=== PATIENT | female | born 1945 | race Hispanic/Latino ===

== ENCOUNTER → 2017-11-08 | Day surgery (SDC) | payer MEDICARE ==
[~2017-11-08] MED LIST: AMLODIPINE BESYL5 MG PO; BALANCED SALT SOLN (OPTH) 15 ML BTL IO ONE; FENTANYL CITRATE/PF 100MCG/2 ML INJ ONE; GELATIN SPONGE 12-7MM ONE; LIDOCAINE 2% /EPINEPHRINE 20 ML SDV INJ ONE; LIDOCAINE HCL 2% LOCAL INJ 5 ML SDV VIAL INJ ONE; METOPROLOL SUCC50 MG PO; MIDAZOLAM HCL 2 MG/2 ML VIAL ONE; NEOMYCIN/POLYMYXIN/DEX (OPTH) 3.5 GM TUBE ONE; PROPOFOL IV EMULSION 10 MG/ML 20 ML VIAL ONE
== END | disposition home or self-care (01) ==
LOC: OR 13:56
PROVIDERS: ATTEND Ophthalmology
DX: H02.834 Dermatochalasis of left upper eyelid (principal); H02.831 Dermatochalasis of right upper eyelid; R00.1 Bradycardia, unspecified; M06.9 Rheumatoid arthritis, unspecified; M19.90 Unspecified osteoarthritis, unspecified site; R09.81 Nasal congestion; I10 Essential (primary) hypertension; F41.9 Anxiety disorder, unspecified; Z01.810 Encounter for preprocedural cardiovascular examination
CPT/HCPCS: 15823; 93005; J2001 ×2; J2250

== ENCOUNTER → 2019-01-23 | Outpatient (CLI) | payer MEDICARE ==
[~2019-01-23] MED LIST changes: -BALANCED SALT SOLN (OPTH) 15 ML BTL IO ONE; -FENTANYL CITRATE/PF 100MCG/2 ML INJ ONE; -GELATIN SPONGE 12-7MM ONE; -LIDOCAINE 2% /EPINEPHRINE 20 ML SDV INJ ONE; -LIDOCAINE HCL 2% LOCAL INJ 5 ML SDV VIAL INJ ONE; -MIDAZOLAM HCL 2 MG/2 ML VIAL ONE; -NEOMYCIN/POLYMYXIN/DEX (OPTH) 3.5 GM TUBE ONE; -PROPOFOL IV EMULSION 10 MG/ML 20 ML VIAL ONE
--- NOTE | 2019-01-23 12:22 | Diagnostic Imaging Report ---
CT of the abdomen and pelvis, without contrast, 01/23/2019. History: Left lower quadrant pain. Comparison: None available. Technique: Multidetector CT scanning of the abdomen and pelvis was performed from the level of the lung bases to the inferior pubic rami without intravenous but with oral administration of contrast. Coronal and sagittal multiplanar reformations were obtained. RADIATION DOSE: Dose modulation, iterative reconstruction, and/or weight based adjustment of the mA/kV was utilized to reduce the radiation dose to as low as reasonably achievable. Discussion: Examination is limited without IV contrast. LUNG BASES: There is bibasilar atelectasis. ABDOMEN: A punctate calcification is present in the right kidney. There is no hydronephrosis. Extrarenal pelvis is noted on the right. The liver, gallbladder, biliary tree, spleen, pancreas, adrenal glands, and kidneys are otherwise unremarkable.. The abdominal aorta is within normal limits for size. A gastric lap band is present in the GE junction. The stomach and small bowel are unremarkable. The appendix is visualized and is normal. Scattered colonic diverticuli are present without evidence of adjacent inflammation. There is no evidence of adenopathy or free fluid. A fat-containing umbilical hernia is present. PELVIS: The bladder is unremarkable. The uterus and adnexa are absent. There is no evidence of free fluid or adenopathy. BONES AND SOFT TISSUES: Degenerative changes are present throughout the lumbar spine without evidence of lytic or sclerotic lesion. IMPRESSION: 1. Mild colonic diverticulosis without evidence of diverticulitis. 2. Tiny nonobstructing right renal calculus. 3. Gastric lap band in normal position. 4. Fat-containing umbilical hernia. Signed by: Allan Lorenz on 01/23/2019 12:19 PM
== END ==
LOC: CT 09:35
PROVIDERS: ATTEND Internal Medicine Gastroenterology
DX: R10.32 Left lower quadrant pain (principal); R51 Headache
CPT/HCPCS: 74176

== ENCOUNTER → 2019-01-24 | Outpatient (CLI) | payer MEDICARE ==
--- NOTE | 2019-01-24 10:56 | Diagnostic Imaging Report ---
EXAMINATION: MRI of the brain without contrast. HISTORY: Right-sided headaches COMPARISON: None. TECHNIQUE: Sagittal T2; axial DWI, T2, FLAIR, T1-IR, T2 gradient echo; coronal FLAIR. IMAGE QUALITY: Adequate. FINDINGS: Parenchyma: 1. Few scatter and periventricular hematocrit dropping hyperintense foci, most likely nonspecific chronic microvascular ischemic changes, within normal limits for patient's age. 2. No mass, hemorrhage, acute or chronic infarcts. Skull: Unremarkable. Vessels: Expected flow voids present in the major arteries and dural sinuses. Extra-axial spaces: No abnormal signal intensity or mass effect. Brain volume: Within normal limits for age. Ventricles: No hydrocephalus or displacement. Foramen magnum: Unremarkable. Sella: Unremarkable. Paranasal / mastoid sinuses: No significant inflammatory disease. IMPRESSION: Minimal chronic microvascular ischemic changes, otherwise no intracranial abnormalities. Signed by: Dr. Myriam Rivera M.D. on 01/24/2019 10:53 AM
== END ==
LOC: MRI 09:31
PROVIDERS: ATTEND Internal Medicine Gastroenterology
DX: R51 Headache (principal)
CPT/HCPCS: 70551

== ENCOUNTER → 2020-02-07 | Day surgery (SDC) | payer MEDICARE, OTHER ==
[2020-02-04 15:16] LABS: BASOPHILS % 0.3 % (0.0-1.0); EOSINOPHILS # (AUTO) 0.1 (0.0-0.4); HEMATOCRIT 41.2 % (34.2-44.1); HEMOGLOBIN 13.4 g/dL (12.0-16.0); LYMPHOCYTES # (AUTO) 2.3 (1.0-3.2); LYMPHOCYTES % 26.5 % (18.0-39.1); MEAN CORPUSCULAR HEMOGLOBIN 30.4 pg (28-32); MEAN CORPUSCULAR HGB CONC 32.5 g/dL (31-35); MEAN CORPUSCULAR VOLUME 93.4 fL (81-99); MONOCYTES # (AUTO) 0.5 (0.2-0.8); MONOCYTES % 6.1 % (4.4-11.3); NEUTROPHILS # (AUTO) 5.6 (2.1-6.9); NEUTROPHILS % 65.8 % (38.7-80.0); PLATELET COUNT 231 x10e3/uL (140-360); RED BLOOD COUNT 4.41 x10e6/uL (3.6-5.1); RED CELL DISTRIBUTION WIDTH 13.2 % (11.7-14.4)
[~2020-02-07] MED LIST changes: +KETAMINE HCL INJ 50 MG/ML 10 ML VIAL ONE; +LIDOCAINE HCL 2% LOCAL INJ 5 ML SDV VIAL INJ ONE; +LISINOPRIL5 MG PO; +MIDAZOLAM HCL 2 MG/2 ML VIAL ONE; +OMEPRAZOLE40 MG PO; +PANTOPRAZOLE 40 MG 10ML VIAL ONE; +PROPOFOL IV EMULSION 10 MG/ML 20 ML VIAL ONE; +RANITIDINE PO
[2020-02-07 13:00] VITALS: BP 129/67
--- NOTE | 2020-02-07 13:37 | Operative Report ---
DATE OF PROCEDURE: 02/07/2020 SURGEON: Rene Mensah MD PROCEDURE: EGD with biopsies. INDICATIONS FOR EGD: Upper abdominal pain and increase eructations. MEDICATIONS: The patient was done under MAC, please see anesthesiologist's note. PROCEDURE IN DETAIL: With the patient in the left lateral decubitus position, a flexible fiberoptic Olympus gastroscope was introduced into the esophagus under direct visualization without any difficulty. There was some patchy erythema noted in distal esophagus. The scope was then advanced with ease into the stomach. Mucosa overlying the antrum and the body revealed some patchy erythema and [id number] edema, and biopsies were obtained and sent to stain for H. pylori. Pylorus was of normal contour and shape, was intubated with ease and the scope was advanced all the way to the second portion of the duodenum. The scope was then withdrawn slowly, mucosa overlying the proximal second portion appeared to be within normal limits. Two ulcers were noted in the distal bulb, approximately 5 mm in size without active bleeding. The scope was then withdrawn back into the stomach and retroflexed, and the lap band appeared to be intact and in good positioning. The scope was then straightened out, it was subsequently withdrawn, and the patient tolerated the procedure well. IMPRESSION: 1. Distal esophagitis, mild. 2. Status post lap band, intact. 3. Gastritis, biopsied, biopsies sent to stain for Helicobacter pylori. 4. Duodenal ulcers, bulb, approximately 5 mm in size without active bleeding. PLAN: Follow up histology. Initiate Protonix 40 mg one p.o. q.a.m. before meals. Continue Zantac 300 mg one p.o. at bedtime. Rene Mensah MD [facility] [place]/MODL /[id number]
== END | disposition home or self-care (01) ==
LOC: OR 08:25
PROVIDERS: ATTEND Internal Medicine Gastroenterology
DX: K20.9 Esophagitis, unspecified (principal); K29.70 Gastritis, unspecified, without bleeding; K26.9 Duodenal ulcer, unspecified as acute or chronic, without hemorrhage or perforation; K21.9 Gastro-esophageal reflux disease without esophagitis; K59.09 Other constipation; Z98.84 Bariatric surgery status; I10 Essential (primary) hypertension; Z91.041 Radiographic dye allergy status; Z01.810 Encounter for preprocedural cardiovascular examination; Z01.812 Encounter for preprocedural laboratory examination; Z11.59 Encounter for screening for other viral diseases; Z68.33 Body mass index [BMI] 33.0-33.9, adult
CPT/HCPCS: 36415; 43239; 85025; 87635; 88305; 88312; 93005; C9113; J2001; J2250; J2704

== ENCOUNTER 2022-11-23 05:26 | Observation (INO) | payer MEDICARE ==
[2022-11-22 10:20] LABS: BASOPHILS % 0.4 % (0.0-1.0); EOSINOPHILS # (AUTO) 0.1 (0.0-0.4); EOSINOPHILS % 0.8 % (0.0-6.0); HEMATOCRIT 44.4 % (34.2-44.1); HEMOGLOBIN 14.2 g/dL (12.0-16.0); LYMPHOCYTES % 24.1 % (18.0-39.1); MEAN CORPUSCULAR HEMOGLOBIN 30.7 pg (28-32); MEAN CORPUSCULAR VOLUME 95.9 fL (81-99); MONOCYTES # (AUTO) 0.4 (0.2-0.8); NEUTROPHILS # (AUTO) 5.8 (2.1-6.9); NEUTROPHILS % 69.5 % (38.7-80.0); PLATELET COUNT 261 x10e3/uL (140-360); RED BLOOD COUNT 4.63 x10e6/uL (3.6-5.1)
[~2022-11-23] VITALS: Ht 157.5 cm; Wt 82.6 kg
[~2022-11-23 05:26] MED LIST changes: +B-121000 MC2; -KETAMINE HCL INJ 50 MG/ML 10 ML VIAL ONE; -LIDOCAINE HCL 2% LOCAL INJ 5 ML SDV VIAL INJ ONE; -MIDAZOLAM HCL 2 MG/2 ML VIAL ONE; -PANTOPRAZOLE 40 MG 10ML VIAL ONE; -PROPOFOL IV EMULSION 10 MG/ML 20 ML VIAL ONE; +VITAMIN C1000 MG PO; +VITAMIN D31 ML
[2022-11-23] MEDS ORDERED: CELECOXIB 200 MG CAP ONE (06:15)
[2022-11-23] MEDS ORDERED: DEXAMETHASONE SOD PHOS 10 MG/1 ML VIAL ONE ×2 (06:15→13:09)
[2022-11-23] MEDS ORDERED: GABAPENTIN 300 MG CAP ONE (06:15)
[2022-11-23] MEDS ORDERED: CEFAZOLIN SODIUM 2 GM ONE (06:16)
[2022-11-23] MEDS ORDERED: Vancomycin IV 1,000 MG ONE (07:03)
[2022-11-23] MEDS ORDERED: TRANEXAMIC ACID 20 ML ONE (07:03)
[2022-11-23] MEDS ORDERED: SODIUM CHLORIDE 0.9% 500ML 500 ML ONE (07:03)
[2022-11-23] MEDS ORDERED: FAMOTIDINE 20 MG/2 ML VIAL IV ONE ×2 (07:20→12:34)
[2022-11-23] MEDS ORDERED: SODIUM CHLORIDE 0.9% 100 ML ONE (07:20)
[2022-11-23] MEDS ORDERED: ROPIVACAINE 246.25 MG, EPINEPHRINE HCL 1:1000 1ML 0.5 MG, CLONIDINE HCL 0.08 MG, KETORO... INJ ONE ×5 (08:00)
[2022-11-23] MEDS ORDERED: DOCUSATE SODIUM 100 MG CAP PO PRN (08:45)
[2022-11-23] MEDS ORDERED: ONDANSETRON HCL INJ 2MG/ML 2ML 2 MG/ML VIAL IV PRN (08:45)
[2022-11-23] MEDS ORDERED: HYDROCODONE/APAP 7.5MG-325MG 1 EA TAB PO PRN (08:45)
[2022-11-23] MEDS ORDERED: ACETAMINOPHEN 650 MG SUPP PR PRN (08:45)
[2022-11-23] MEDS ORDERED: HYDROCODONE/APAP 5MG-325MG TAB PO PRN (08:45)
[2022-11-23] MEDS: SODIUM CHLORIDE 0.9% 1000ML 1,000 ML IV SCH ×2 (08:45→17:57)
[2022-11-23] MEDS ORDERED: DIPHENHYDRAMINE HCL INJ 50 MG/ML VIAL IV PRN (08:45)
[2022-11-23] MEDS ORDERED: HYDROMORPHONE 1MG/1ML INJ ONE (09:39)
[2022-11-23] MEDS ORDERED: ACETAMINOPHEN 1000 MG/100 ML 100 ML IV ONE (10:00)
[2022-11-23 10:10] VITALS: BP 128/55
[2022-11-23 12:34] VITALS: BP 128/55
[2022-11-23] MEDS ORDERED: ONDANSETRON HCL INJ 2MG/ML 2ML 2 MG/ML VIAL ONE (12:34)
[2022-11-23] MEDS ORDERED: EYE LUBRICANT OPTH OINT 3.5GM TUBE OP ONE (12:34)
[2022-11-23] MEDS ORDERED: EPHEDRINE SULFATE INJ 50 MG/ML VIAL ONE (12:34)
[2022-11-23] MEDS ORDERED: SEVOFLURANE INHAL SOLN 250 ML PEN BTL ONE (12:34)
[2022-11-23] MEDS ORDERED: POVIDONE IODINE 0.05% 0.05 % ML PO ONE (12:34)
[2022-11-23] MEDS ORDERED: LIDOCAINE HCL 2% LOCAL INJ 5 ML SDV VIAL INJ ONE (12:34)
[2022-11-23] MEDS ORDERED: GLYCOPYRROLATE INJ 0.2 MG/ML VIAL ONE (12:34)
[2022-11-23] MEDS ORDERED: PHENYLEPHRINE HCL 1% 10 MG/ML VIAL ONE (12:34)
[2022-11-23] MEDS: ASPIRIN 325 MG TAB PO SCH ×2 (13:00→17:56)
[2022-11-23] MEDS ORDERED: ROPIVACAINE 0.5% 5 MG/ML 30 ML SDV ONE (13:09)
[2022-11-23] MEDS ORDERED: FENTANYL CITRATE/PF 100MCG/2 ML INJ ONE (13:25)
[2022-11-23] MEDS ORDERED: MIDAZOLAM HCL 2 MG/2 ML VIAL ONE (13:25)
[2022-11-23 16:27] VITALS: BP 108/55
[2022-11-23] MEDS ORDERED: CELECOXIB 200 MG CAP PO SCH (17:00)
[2022-11-23 20:33] VITALS: BP 118/63
[2022-11-23 20:34] VITALS: BP 118/63
[2022-11-24 04:41] LABS: HEMATOCRIT 37.4 % (34.2-44.1); HEMOGLOBIN 12.1 g/dL (12.0-16.0)
[2022-11-24] MEDS ORDERED: ACETAMINOPHEN 1000 MG/100 ML IV PRN (08:45)
== END 2022-11-24 07:09 | disposition home or self-care (01) ==
LOC: OR 05:26 → PACU V 08:46 → MED/SURG 10:20
PROVIDERS: ADMIT Specialist; ATTEND Specialist
DX: M17.11 Unilateral primary osteoarthritis, right knee (principal); I10 Essential (primary) hypertension; N20.0 Calculus of kidney; K21.9 Gastro-esophageal reflux disease without esophagitis; Z91.041 Radiographic dye allergy status; Z01.812 Encounter for preprocedural laboratory examination; Z20.822 Contact with and (suspected) exposure to COVID-19; Z79.899 Other long term (current) drug therapy; Z68.32 Body mass index [BMI] 32.0-32.9, adult
CPT/HCPCS: 0223U; 27447; 36415 ×2; 71046; 73560; 85014; 85018; 85025; 86850; 86900; 94799; 97110; 97116; 97162; 97530 ×2; C1713 ×2; C1776 ×3; G0378 ×2; J0131; J0171; J0690; J1100; J1170; J1885; J2001; J2250; J2370; J2405; J2795; J3010; J3370; J7030; J7040; J7050